=== PATIENT | female | born 1995 | race Caucasian/White ===

== ENCOUNTER 2024-09-22 11:55 | Outpatient (CLI) | payer BC, SELFPAY | END 2024-09-22 11:56 | disposition home or self-care (01) | LOC: LBO 11:57 | PROVIDERS: PCP Family Medicine; Visit Provider Obstetrics & Gynecology | DX: Z34.91 Encounter for supervision of normal pregnancy, unspecified, first trimester (principal) | CPT/HCPCS: 36415; 86850; 86900; 86901 ==

== ENCOUNTER 2024-10-15 13:08 | Outpatient (CLI) | payer BC, SELFPAY ==
[2024-10-15 16:59] LABS: WBC 9.64 10^3/uL (4.4-10.8)
[2024-10-15 17:00] LABS: Abs Immature Grans 0.05 10^3/uL (0.0-0.06); HCT 33.5 % (36.0-46.0); HGB 11.8 g/dL (11.2-15.7); Immature Grans % 0.5 %; MCH 31.3 pg (27.0-33.0); MCHC 35.2 % (32.0-36.0); MCV 89 fL (80-95); MPV 10.0 fL (8.0-11.0); Platelet Count 178 10^3/uL (130-400); RBC 3.77 10^6/uL (3.93-5.22); RDW 13.6 % (11.7-14.6); RDW-SD 44.1 fL
[2024-10-16 10:08] LABS: TSH (W/Ref FT4) 0.88 uIU/mL (0.36-3.74)
[2024-10-16 10:22] LABS: Lab Add On Test DONE
[2024-10-16 18:09] LABS: HIV-1/2 Ag & Ab Screen Negative (Negative)
[2024-10-16 20:22] LABS: Hepatitis C Ab w Rflx HCV PCR Negative (Negative)
[2024-10-17 11:55] LABS: Rubella IgG Ab (UVM) Positive (See Note)
[2024-10-20 17:40] LABS: Syphilis IgG w/Reflex Nonreactive (Nonreactive)
== END 2024-10-15 13:09 | disposition home or self-care (01) ==
PROVIDERS: PCP Family Medicine; Visit Provider Advanced Practice Midwife
DX: Z34.91 Encounter for supervision of normal pregnancy, unspecified, first trimester (principal)
CPT/HCPCS: 36415; 81220; 81222; 81329; 86787; 86803; 87340; 87389; 84443; 85025; 86762; 86780

== ENCOUNTER 2024-10-15 15:02 | Outpatient (REF) | payer BC, SELFPAY ==
[2024-10-17 11:55] LABS: Chlamydia Result Negative (Negative); GC Result Negative (Negative)
== END 2024-10-15 15:03 | disposition home or self-care (01) ==
LOC: LBN 15:02
PROVIDERS: PCP Family Medicine; Visit Provider Advanced Practice Midwife
DX: Z34.91 Encounter for supervision of normal pregnancy, unspecified, first trimester (principal)
CPT/HCPCS: 87491; 87591; 87086; 87480; 87510; 87660

== ENCOUNTER 2025-02-02 01:40 | Outpatient (CLI) | payer BC, SELFPAY ==
[2025-02-02 11:28] LABS: HCT 32.6 % (36.0-46.0); HGB 11.1 g/dL (11.2-15.7); MCH 32.2 pg (27.0-33.0); MCHC 34.0 % (32.0-36.0); MCV 95 fL (80-95); MPV 10.5 fL (8.0-11.0); Platelet Count 152 10^3/uL (130-400); RBC 3.45 10^6/uL (3.93-5.22); RDW 13.9 % (11.7-14.6); RDW-SD 47.7 fL; WBC 9.54 10^3/uL (4.4-10.8)
[2025-02-02 12:02] LABS: Glucose,1 Hr (Glucola) 97 mg/dL (80-140)
== END 2025-02-02 01:41 | disposition home or self-care (01) ==
LOC: LBO 01:40
PROVIDERS: PCP Family Medicine; Visit Provider Advanced Practice Midwife
DX: Z34.92 Encounter for supervision of normal pregnancy, unspecified, second trimester (principal)
CPT/HCPCS: 36415; 82950; 85027